=== PATIENT | male | born 1995 | race Caucasian/White ===

== ENCOUNTER 2023-07-11 13:31 | Inpatient (IN) | payer BC, SELFPAY ==
[2023-07-11 13:57] VITALS: BMI 28.2
[2023-07-11 13:59] VITALS: BP 144/107
[2023-07-11 14:00] VITALS: BP 144/107; PULSE 62; RESP 16; O2SAT 97
--- NOTE | 2023-07-11 14:47 | PC.NURSE ---
Patient arrived to unit and immediately asked to use the phone. Appears anxious, but is cooperative upon assessment. Patient states he started to be hard on himself and just thinks he needed a rest from work because it was causing him too much stress. 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 Patient denies si/hi and avh. He also denies any other causes of his increased stress level. Patient has a very pronounced stutter.
[2023-07-11] MEDS: acetaminophen 325 mg Tablet 650 MG PO (18:59)
[2023-07-11 20:08] VITALS: BP 130/84; PULSE 99; RESP 17; TEMP 36.8; O2SAT 96
[2023-07-12 06:00] VITALS: BP 105/70; PULSE 62; RESP 16; TEMP 36.6; O2SAT 96
--- NOTE | 2023-07-12 12:43 | W.PM.NPUH&PS ---
Providers/Chief Complaint Admitting Physician: Juan Jose Ruiz MD Chief Complaint: mental health evaluation. HPI NPU History of Present Illness Merle Barfield is a 28 year old male with no previous history of inpatient hospitalizations who arrived here after presenting to the [facility] emergency department in [place] with depression and having thoughts of wanting to hurt himself according to records. The patient was transferred to the [facility] from [place] for further evaluation and treatment. The patient reports that he had been feeling kind of down . He had reported having had significant thoughts of going crazy . He states that he has had some difficulty falling asleep and stated that he needed a break from work. 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 He does report some difficulties with concentration. He has reported having considerable anxiety related to stress at work. Patient states that he has not been hearing any voices and denies any visual hallucinations as well. He reports that he does not feel depressed currently but does feel stressed. Patient had reported a past history of seizures over 15 years ago but reports being seizure-free since that time. 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 Patient endorses no feelings of hopelessness. He denies any history of psychotic symptoms. He does report that he chronically stutters and it worsens in the presence of increased anxiety. He reports a past history of struggles with socializing age appropriately and reports that he often does poorly to changes in his environment. He did report a history of specific areas of interest particularly computers and reports that he prefers to be by himself. He also reports struggling with changes in routine. He does not report any current problems with memory. He denies any recent loss of consciousness. 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 Past history of seizures. Drug and alcohol history: The patient reports a history of drinking on weekends. He reports no history of seizures or withdrawal symptoms secondary from alcohol use. He denies any illicit drug use. Family psychiatric history: Maternal great grandfather had a history of alcoholism. Patient reports his father also had a history of alcoholism. He also reported that his mother had suffered from depression. Social history: Patient was raised by his biological parents. He reports having an older sister. He denies any history of sexual physical or emotional abuse. He had reported having few friends while growing up. He reports having done well in school and earned a degree in college in computer programming. 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 He reports having few friends. He has never been and has no children. Meds NPU Home Medications Medication Instructions Recorded Confirmed Last Taken Type No Known Home Medications 07/11/23 07/11/23 Unknown History Allergies Allergy/AdvReac Type Severity Reaction Status Date / Time No Known Allergies Allergy Verified 07/11/23 15:03 Mental Status Exam MSE Comments: He is a casually dressed healthy white male with fair hygiene and normal gait. There was no evidence of any abnormal involuntary motor movements tics or tremors appreciated. His speech showed significant periods of clear and fluent speech followed by periods of intense stuttering. His quality of speech was monotone and very [id number]. His thought process was linear logical and goal-directed. His thought content showed no evidence of active homicidal or suicidal ideation. He described his mood as stressed. His affect was anxious. He did not appear to be responding to internal stimuli. There was no clear evidence of delusional thinking. His recent and remote memory were intact on examination. His insight was poor. His judgment appeared limited. His impulse control appeared adequate. He was alert and oriented to person place time and situation. There is no clear evidence of stereotypies. Vitals/I&O/Wt Last Vital Signs Temp 97.9 F 07/12/23 06:00 Pulse 62 07/12/23 06:00 Resp 16 07/12/23 06:00 BP 105/70 07/12/23 06:00 Pulse Ox 96 07/12/23 06:00 O2 Del Method Room Air 07/12/23 06:00 Weight last 48 hrs Weight 79.379 kg A&P Assessment and plan (1) MARCIE (generalized anxiety disorder): (2) Adjustment disorder with depressed mood: Plan 28-year-old male transferred here after endorsing depression but reporting more symptoms suggestive of anxiety after being overwhelmed at work with past history consistent of stuttering and no evidence of psychosis. He also appears to have some symptoms that might suggest an autistic spectrum disorder. 1. ?Encourage individual, group and milieu therapy. 2. Recommend sober living treatment at the highest level of care to which the patient is willing to commit. 3. Continue q-15 minute checks for safety.? 4. Trial of lexapro 10mg daily to target anxiety. Involuntary Hold Information 96 Hour Hold: 96 Hour Involuntary Admission: No Attestations NPU Medical Necessity Statement*: Inpatient hospitalization is medically necessary and deemed to be the clinically appropriate intervention at this time. The patient will be hospitalized for at least 2 midnights. Medications will be started and adjusted accordingly. The patient's likely length of stay is 2 to 3 days. Coding Level of Care Code Acute Code for Chg Fwd Diagnoses MARCIE (generalized anxiety disorder) F41.1 Adjustment disorder with depressed mood F43.21
--- NOTE | 2023-07-12 13:33 | P.NPUDS_ITS ---
Diagnoses at Discharge Discharge Diagnosis (1) MARCIE (generalized anxiety disorder): Status: Acute (2) Adjustment disorder with depressed mood: Status: Acute (3) Autistic disorder: Status: Acute Reason for Visit Reason for Visit: mental health evaluation. Brief History: History of Present Illness Merle Barfield is a 28 year old male with no previous history of inpatient hospitalizations who arrived here after presenting to the [facility] emergency department in [place] with depression and having thoughts of wanting to hurt himself according to records.? The patient was transferred to the [facility] from [place] for further evaluation and treatment.? The patient reports that he had been feeling kind of down .? He had reported having had significant thoughts of going crazy .? He states that he has had some difficulty falling asleep and stated that he needed a break from work.? 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 He does report some difficulties with concentration.? He has reported having considerable anxiety related to stress at work.? Patient states that he has not been hearing any voices and denies any visual hallucinations as well.? He reports that he does not feel depressed currently but does feel stressed.? Patient had reported a past history of seizures over 15 years ago but reports being seizure-free since that time.? He had a history of a head bleed into the germinal matrix in the past and a cerebrovascular accident that required a MILLINER HELPER shunt being placed at the age of 3 weeks.? Patient endorses no feelings of hopelessness.? He denies any history of psychotic symptoms.? He does report that he chronically stutters and it worsens in the presence of increased anxiety.? He reports a past history of struggles with socializing age appropriately and reports that he often does poorly to changes in his environment.? He did report a history of specific areas of interest particularly computers and reports that he prefers to be by himself.? He also reports struggling with changes in routine.? He does not report any current problems with memory.? He denies any recent loss of consciousness. Psychiatric history: None Current medications: None Allergies: No known drug allergies Surgical history: Left parietal MILLINER HELPER shunt placement during infancy Medical history: History of hydrocephalus and CVA during infancy.? Past history of seizures. Drug and alcohol history: The patient reports a history of drinking on weekends.? He reports no history of seizures or withdrawal symptoms secondary from alcohol use.? He denies any illicit drug use. Family psychiatric history: Maternal great grandfather had a history of alcoholism.? Patient reports his father also had a history of alcoholism.? He also reported that his mother had suffered from depression. Social history: Patient was raised by his biological parents.? He reports having an older sister.? He denies any history of sexual physical or emotional abuse.? He had reported having few friends while growing up.? He reports having done well in school and earned a degree in college in computer programming.? 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 He reports having few friends.? He has never been and has no children. Hospital Course Hospital Course During the hospitalization, the patient had routine laboratory studies (completed at facility which transferred patient) which were within normal limits except for a few outliers.? Additionally, there was a general medical evaluation which was also within normal limits and revealed no new acute processes.? At the time of discharge, lethality was denied and there was no evidence of psychosis. Mood and anxiety were well managed.? The patient endorsed a plan to avoid all drugs of abuse and follow up with the aftercare recommendations of the treatment team.? The patient was evaluated and deemed to be absent credible lethality and had achieved the maximum benefit from an inpatient hospi talization, and so was discharged. Of note, patient was urged to avoid alcohol given his past history of seizures and to follow up with psychiatrist and psychotherapy to help manage his anxiety and occasional episodes of depression. ? Involuntary Hold Information 96 Hour Hold: 96 Hour Involuntary Admission: No Mental Status Exam MSE Comments: He is a casually dressed healthy white male with fair hygiene and normal gait. There was no evidence of any abnormal involuntary motor movements tics or tremors appreciated. His speech showed significant periods of clear and fluent speech followed by periods of intense stuttering. His quality of speech was monotone and very [id number]. His thought process was linear logical and goal-directed. His thought content showed no evidence of active homicidal or suicidal ideation. He described his mood as relieved at discharge. His affect was less anxious. He did not appear to be responding to internal stimuli. There was no clear evidence of delusional thinking. His recent and remote memory were intact on examination. His insight was improving. His judgment appeared fair. His impulse control appeared adequate. He was alert and oriented to person place time and situation. There is no clear evidence of stereotypies. Discharge Data Vitals: Last Vital Signs Temp 97.9 F 07/12/23 06:00 Pulse 62 07/12/23 06:00 Resp 16 07/12/23 06:00 BP 105/70 07/12/23 06:00 Pulse Ox 96 07/12/23 06:00 O2 Del Method Room Air 07/12/23 06:00 Discharge Plan Discharge Patient Disposition: Home Condition: Stable Prescriptions: New escitalopram oxalate 10 mg Tablet 10 mg PO DAILY 30 Days Qty: 30 1RF Discharge Orders: Discharge Order (Routine); Ordered 07/12/23 Ordered By: Juan Jose Ruiz Referrals: [facility] [Other] - 07/24/23 1:45 pm (Intake appointment) Discharge Diet: Usual diet Discharge Activity: Resume usual activity Patient Instructions: Opioid Safety Discharge Attestations NPU Time Spent in Discharge Care*: less than 30 min Specific Discharge Activities: Specific discharge activities: educating patient and documenting/other paperwork Coding Level of Care Code Acute Chg [facility] note Diagnoses MARCIE (generalized anxiety disorder) F41.1 Adjustment disorder with depressed mood F43.21 Autistic disorder F84.0
[2023-07-12 13:46] VITALS: BP 105/70; PULSE 62; RESP 16; TEMP 36.6; O2SAT 96
[2023-07-12] MEDS: escitalopram 10 mg Tablet PO (13:58)
[2023-07-12 14:00] VITALS: BP 126/91; PULSE 89; RESP 18; TEMP 36.4; O2SAT 96
== END 2023-07-12 15:07 | disposition home or self-care (01) | DRG 881 ==
PROVIDERS: Admitting Provider Psychiatry & Neurology Psychiatry; Visit Provider Psychiatry & Neurology Psychiatry
DX: F43.21 Adjustment disorder with depressed mood (principal); F41.1 Generalized anxiety disorder; Z81.1 Family history of alcohol abuse and dependence
CPT/HCPCS: 97150; 97165